=== PATIENT | female | born 1950 | race African-American/Black ===

== ENCOUNTER 2022-12-08 02:46 | Observation (INO) | payer OTHER ==
[2022-12-08 04:57] LABS: ALBUMIN 3.6 g/dl (3.4-5.0)
[2022-12-08 05:00] LABS: CREATININE 0.9 mg/dL (0.55-1.3)
[2022-12-08 05:01] LABS: BILIRUBIN,TOTAL 0.3 mg/dL (0.2-1); TOT PROT 6.9 g/dl (6.4-8.2)
[2022-12-08 05:11] LABS: BLOOD UREA NITROGEN 15.1 mg/dL (7-18)
[2022-12-08 05:33] LABS: BASO % 1.3 % (0-2.0); EOS % 4.9 % (0-4.5); HEMATOCRIT 32.7 % (32.4-45.2); HEMOGLOBIN 10.8 GM/dL (10.7-15.3); LYMPH % 28.7 % (8-40); MCH 26.8 pg (25.7-33.7); MCHC 33.1 g/dl (32.0-36.0); MEAN PLT VOLUME 8.4 fl (7.5-11.1); MONO % 16.4 % (3.8-10.2); NEUT % 48.7 % (42.8-82.8); PLATELET COUNT 221 10^3/uL (134-434); RBC 4.03 M/mm3 (3.60-5.2); RDW 15.4 % (11.6-15.6); WHITE BLOOD COUNT 4.9 K/mm3 (4.0-10.0)
[2022-12-08] MEDS ORDERED: ASPIRIN 81 MG CHEWABLE TABLETS PO ONE (05:58)
[2022-12-08] MEDS ORDERED: ASPIRIN 81 MG CHEWABLE TABLETS ONE (06:59)
[2022-12-08] MEDS ORDERED: ATORVASTATIN CA 40 MG TABLET (FP) PO ONE (10:30)
[2022-12-08] MEDS: INSULIN SLIDING SCALE (NOVOLOG) 1 VIAL SQ SCH ×2 (10:48→16:33)
[2022-12-08] MEDS ORDERED: ATORVASTATIN CA 40 MG TABLET (FP) ONE (11:28)
[2022-12-08] MEDS ORDERED: ENOXAPARIN NA (PORCINE) 40 MG/0.4 ML DISP.SYRIN SQ ONE (11:28)
[2022-12-08] MEDS: ENOXAPARIN NA (PORCINE) 40 MG/0.4 ML DISP.SYRIN SQ SCH (11:37)
[2022-12-08] MEDS: guaiFENesin/D-M SUGAR-FREE/ACLHOL-FREE 5 ML UNIT DOSE PO PRN ×2 (11:37→19:27)
[2022-12-08] MEDS ORDERED: REMDESIVIR 200 MG in SODIUM CHLORIDE 250 ML IVPB ONE (12:00)
[2022-12-08 13:47] LABS: PH,URINE 7.5 (5.0-8.0); URINE APPEARANCE CLEAR; URINE BILIRUBIN NEGATIVE (NEGATIVE); URINE COLOR YELLOW; URINE GLUCOSE (UA) NEGATIVE (NEGATIVE); URINE KETONE NEGATIVE (NEGATIVE); URINE LEUK ESTERASE NEGATIVE (NEGATIVE); URINE NITRITE NEGATIVE (NEGATIVE); URINE PROTEIN NEGATIVE (NEGATIVE); URINE UROBILINOGEN 0.2 mg/dL (0.2-1.0)
[2022-12-08 16:02] VITALS: BMI 40.8
[2022-12-09] MEDS: INSULIN SLIDING SCALE (NOVOLOG) 1 VIAL SQ SCH ×3 (07:44→17:38)
[2022-12-09] MEDS ORDERED: ENOXAPARIN NA (PORCINE) 40 MG/0.4 ML DISP.SYRIN SQ ONE (09:13)
[2022-12-09] MEDS ORDERED: PANTOPRAZOLE 20 MG TABLET PO ONE (09:13)
[2022-12-09] MEDS: PANTOPRAZOLE 20 MG TABLET PO SCH (09:30)
[2022-12-09] MEDS: ENOXAPARIN NA (PORCINE) 40 MG/0.4 ML DISP.SYRIN SQ SCH (09:30)
[2022-12-09] MEDS ORDERED: REMDESIVIR 200 MG in SODIUM CHLORIDE 250 ML IVPB ONE ×2 (09:45→11:00)
[2022-12-09] MEDS: REMDESIVIR 100 MG in SODIUM CHLORIDE 250 ML IVPB SCH (12:15)
[2022-12-09 15:04] VITALS: RESP 18
[2022-12-10] MEDS: INSULIN SLIDING SCALE (NOVOLOG) 1 VIAL SQ SCH ×2 (07:22→11:31)
[2022-12-10] MEDS: ENOXAPARIN NA (PORCINE) 40 MG/0.4 ML DISP.SYRIN SQ SCH (11:25)
[2022-12-10] MEDS: PANTOPRAZOLE 20 MG TABLET PO SCH (11:25)
[2022-12-10] MEDS: REMDESIVIR 100 MG in SODIUM CHLORIDE 250 ML IVPB SCH (13:15)
[2022-12-10 16:08] VITALS: BP 141/74; PULSE 62; TEMP 98
[2022-12-10] MEDS: guaiFENesin/D-M SUGAR-FREE/ACLHOL-FREE 5 ML UNIT DOSE PO PRN (16:57)
[2022-12-10] MEDS ORDERED: ATORVASTATIN CA 10 MG TABLET (FP) PO SCH (22:00)
== END 2022-12-10 17:55 | disposition home or self-care (01) ==
LOC: JER 02:46 → JERBED 05:38 → J4W 12-09 16:50
PROVIDERS: ADMIT Internal Medicine; ATTEND Internal Medicine
PROC: 3E023GC Introduction of Other Therapeutic Substance into Muscle, Percutaneous Approach (ICD-10-PCS; principal; 2022-12-08)
PROC: 3E033GC Introduction of Other Therapeutic Substance into Peripheral Vein, Percutaneous Approach (ICD-10-PCS; 2022-12-08)
DX: U07.1 COVID-19 (principal); R07.9 Chest pain, unspecified; E11.9 Type 2 diabetes mellitus without complications; Z29.8 Encounter for other specified prophylactic measures; E66.01 Morbid (severe) obesity due to excess calories; Z68.41 Body mass index [BMI] 40.0-44.9, adult; E78.00 Pure hypercholesterolemia, unspecified; R94.31 Abnormal electrocardiogram [ECG] [EKG]; I10 Essential (primary) hypertension; Z91.018 Allergy to other foods
CPT/HCPCS: 0241U-QW; 36415; 71046-TC-FY; 80053; 81003; 82962; 83036; 83605; 83615; 84484; 85025; 85379; 93005; 93010; 93306-TC; 96365; 96366; 96372; 97116-GP; 97162-GP; 99285-25; C9399; G0378